=== PATIENT | female | born 1955 | race Caucasian/White ===

== ENCOUNTER 2018-10-08 07:34 | Day surgery (SDC) | payer OTHER ==
[2018-10-08] MEDS ORDERED: PROPOFOL 20 ML (10:03)
[2018-10-08] MEDS ORDERED: METOCLOPRAMIDE 10 MG INJ IV (11:00)
[2018-10-08] MEDS ORDERED: FENTAnyl 50 MCG/ML VIAL IV ×3 (11:00)
[2018-10-08] MEDS ORDERED: DIPHENHYDRAMINE 50 MG INJ IV (11:00)
[2018-10-08] MEDS ORDERED: ONDANSETRON 4 MG INJ IV (11:00)
[2018-10-08] MEDS ORDERED: LABETALOL HCL 20MG INJ IV (11:00)
[2018-10-08] MEDS ORDERED: EPHEDrine SULFATE 50 MG/5 ML SYG IV (11:00)
[2018-10-08] MEDS ORDERED: hydrALAzine 20 MG INJ IV (11:00)
[2018-10-08] MEDS ORDERED: OXYCODONE/ACETAMINOPHEN (5/325) TAB PO ×2 (11:00)
[2018-10-08] MEDS ORDERED: MEPERIDINE 25 MG INJ IV (11:00)
[2018-10-08] MEDS ORDERED: MIDAZOLAM 1 MG/ML 2 ML INJ IV (11:00)
== END 2018-10-08 12:18 | disposition home or self-care (01) ==
LOC: GIL 07:34
DX: Z12.11 Encounter for screening for malignant neoplasm of colon (principal); K64.8 Other hemorrhoids; K57.30 Diverticulosis of large intestine without perforation or abscess without bleeding; I10 Essential (primary) hypertension; E78.5 Hyperlipidemia, unspecified; E11.9 Type 2 diabetes mellitus without complications; E66.9 Obesity, unspecified; Z68.32 Body mass index [BMI] 32.0-32.9, adult
CPT/HCPCS: 45378; 82962